=== PATIENT | female | born 1995 | race Hispanic/Latino ===

== ENCOUNTER 2016-12-06 15:11 | Day surgery (SDC) | payer SELFPAY ==
[2016-12-06] VITALS (14 sets, daily range): BP systolic 95–124; BP diastolic 60–77; PULSE 62–79; RESP 11–27; O2SAT 96–100
[~2016-12-06] VITALS: Ht 162.6 cm; Wt 73.6 kg
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
[2016-12-06] MEDS ORDERED: 0.9% Sodium Chloride 1,000 ML IV ONE ×2 (17:12→19:15)
[2016-12-06 17:14] LABS: APPEARANCE,URINE HAZY (CLEAR,HAZY); COLOR,URINE YELLOW (YELLOW); OCCULT BLOOD,URINE SMALL (NEGATIVE); UROBILINOGEN,URINE NORMAL (NORMAL)
[2016-12-06 18:17] LABS: Mean Corpuscular Hemoglobin 28.3 pg (27.0-35.0); Mean Corpuscular Volume 87.7 fL (81-100)
[2016-12-06] MEDS ORDERED: HYDROmorphone 0.5 mg/0.5 mL iSecure Syringe IVPUSH ONE (19:15)
[2016-12-06] MEDS ORDERED: Ondansetron 2 mg/mL 2 mL Inj IVPUSH ONE (19:15)
[2016-12-06] MEDS ORDERED: HYDROmorphone 1 mg/mL Inj IVPUSH ONE ×2 (19:55→21:00)
--- NOTE | 2016-12-06 20:13 | DRSVH ---
PROCEDURE: US PELVIC SONOGRAM + TRANSVAGINAL SONOGRAM INDICATIONS: +preg, abdominal pain. TECHNIQUE: Real-time scanning was performed of the pelvic organs, with image documentation. Additional endovagi nal scanning was necessary due to incomplete visualization of the adnexal and endometrial structures by transabdominal scanning. COMPARISON: None. FINDINGS: Transabdominal scanning: Limited scanning through the kidneys shows no hydronephrosis. There is a l arge amount of echogenic free fluid in the pelvis and upper quadrants bilaterally. Endovaginal scanning: Uterus: Uterus is normal in size at 8.2 x 4.6 x 5.7 cm. The endometrium measures 13.8 mm in combine d thickness. There is no intrauterine gestational sac. Ovaries: There is a 3.2 x 2.5 x 2.2 cm echogenic mass in the right adnexa with central lucency and p eripheral vascularity, suspicious for ectopic . Right ovary is measures 2.0 x 2.4 x 2.2 cm w ith a 1 cm corpus luteum cyst. The left ovary is not identified. IMPRESSION: 1. A 3.2 x 2.5 x 2.2 cm echogenic mass with central lucency and peripheral vascularity in the right a dnexa, suspicious for ectopic . 2. No intrauterine gestational sac. 3. A large amount of echogenic free fluid in pelvis and in both upper quadrants consistent with hemat joanna. This finding is concerning for ruptured ectopic . The result was discussed with Dr. Montanez in ER on 12/06/2016 at 2010 hours. Dictated by: Conor Bowser M.D. on 12/06/2016 at 20:04 Transcribed by: ANNE on 12/06/2016 at 20:13 Approved by: Conor Bowser M.D. on 12/06/2016 at 20:15
[2016-12-06 21:19] LABS: INR 0.96 ratio
[2016-12-06] MEDS ORDERED: Ondansetron 2 mg/mL 2 mL Inj IVPUSH PRN (21:55)
[2016-12-06] MEDS ORDERED: MetoCLOpramide 5 mg/mL 2 mL Inj IVPUSH PRN (21:55)
[2016-12-06] MEDS ORDERED: Alum-Mag Hydrox-Simeth 30 mL Suspension PO PRN (21:55)
[2016-12-06] MEDS ORDERED: oxyCODONE-Acetamin 5-325 mg Tablet PO PRN (21:55)
[2016-12-06] MEDS ORDERED: Acetaminophen IV 1,000 MG in IV Premix 1 EACH IV PRN (21:55)
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
[2016-12-06] MEDS ORDERED: Lactated Ringer's 1,000 ML IV ONE (22:32)
[2016-12-06] MEDS ORDERED: Bupivacaine-MPF 0.5% W/EPI 30 mL Inj INFILTRATE ONE (22:32)
[2016-12-07] VITALS: BP 116/60; PULSE 75; RESP 18; O2SAT 100
[2016-12-07] MEDS: Lactated Ringer's 1,000 ML IV SCH ×2 (00:18→05:51)
[2016-12-07] MEDS: HYDROmorphone 1 mg/mL Inj IVPUSH PRN ×2 (00:22→08:49)
[2016-12-07] MEDS ORDERED: Dexamethasone 4 mg/mL Inj ONE (00:47)
[2016-12-07] MEDS ORDERED: Propofol 10,000 mCg/mL 20 mL Inj ONE (00:47)
[2016-12-07] MEDS ORDERED: fentaNYL-PF 50 mCg/mL 2 mL Inj ONE (00:47)
[2016-12-07] MEDS ORDERED: KETAMINE PO ONE (00:47)
[2016-12-07] MEDS ORDERED: Ondansetron 2 mg/mL 2 mL Inj ONE (00:47)
[2016-12-07 00:49] VITALS: BP 124/92; PULSE 77; RESP 18; O2SAT 100
--- NOTE | 2016-12-07 01:07 | PCM.ANEP1 ---
Post Anesthesia PACU Phase 1 Assessment Vital Signs Vital Signs Date Time Temp Pulse Resp B/P Pulse Ox O2 Delivery O2 Flow Rate FiO2 12/07/16 00:49 36.5 77 18 124/92 100 Room Air 12/07/16 00:00 75 18 116/60 100 Room Air 12/06/16 23:55 37.5 64 18 124/71 100 Room Air 12/06/16 23:50 62 16 122/74 100 Room Air 12/06/16 23:45 63 11 119/69 100 Room Air 12/06/16 23:40 68 27 118/77 100 Room Air 12/06/16 23:35 64 16 109/60 100 Room Air 12/06/16 23:30 36.5 67 12 95/75 96 Room Air 12/06/16 21:33 36.7 71 16 117/66 100 Room Air 12/06/16 21:23 71 16 117/66 100 Room Air 12/06/16 21:06 74 14 114/72 100 Room Air 12/06/16 20:50 75 14 115/64 100 Room Air 12/06/16 20:32 74 15 119/69 100 Room Air 12/06/16 20:16 79 15 124/72 99 Room Air 12/06/16 20:00 73 14 111/65 97 Room Air Anesthetic Administered: GA Level of Alertness: Awake, talking Pain: No Pain Scale Score: 2 Nausea or Vomiting: No CV Function & Hydration Stable: Yes Airway Device: Oxygen Delivery: Room Air Lungs: Clear to Auscultation, Normal Air Movement PACU Phase 2 Assessment Complications: No Follow up Care: No Patient Instructions Provided: N/A William Hollis MD Dec 07, 2016 01:07
--- NOTE | 2016-12-07 02:11 | NUR ---
Admit Note Pt. arrived on floor around 0005. Pt. was alert and oriented x3. However, pt. was very tearful and emotional. Pt. could not rate pain, but described it as "bad". Heating pad, IV Dilaudid, and PO Percocet given. PO Percocet seemed to be the most effective. Pt. became nauseous about an hour after admission, and Reglan IV was given. Significant other in room with pt. Pt.'s IV fluids running in right AC peripheral IV which is intact and patent. Will continue to monitor.
[2016-12-07 05:00] VITALS: BP 105/67; PULSE 94; RESP 14; O2SAT 99
[2016-12-07 05:37] LABS: BASOPHILS % (AUTO) 0 % (0-3); EOSINOPHILS % (AUTO) 0 % (0-5); Mean Corpuscular Hemoglobin 28.4 pg (27.0-35.0); Mean Corpuscular Volume 87.4 fL (81-100); NEUTROPHILS % (AUTO) 92.7 % (40-74); Platelet Count 187 bil/L (150-400)
[2016-12-07 07:55] VITALS: BP 95/62; PULSE 60; RESP 16; O2SAT 99
--- NOTE | 2016-12-07 11:49 | PCM.DIGYN ---
Surgical Discharge Instruction Dates of Hospitalization Date of Hospital Admission Dec 07, 2016 at 00:46 Providers Admitting Physician: Rich Ramirez MD Primary Care Physician: Nopcp Attending Physician: Rich Ramirez MD Diagnosis at Time of Discharge Problems: (1) Ruptured ectopic Status: Acute ICD Code: O00.90 Diet Discharge Diet: No restrictions Activity Discharge Activity-General: No lifting >10 pounds for 4-6 weeks, Other (Pelvic Rest for 4-6 weeks.) Dressing and Incisional Care Dressing Care: Remove outer dressing after 24 hrs Hygiene: May shower, DO NOT soak incision under water Follow Up Plan Follow-up appointment: Weeks (Follow up in Office for 30-minute postoperative checkup in 4-6 weeks.) Call your provider for: Fever, Chills, Shortness of breath, Increasing pain Rich Ramirez MD Dec 07, 2016 11:49
[2016-12-07] MEDS ORDERED: OXYC1TAB24 PO (11:51)
--- NOTE | 2016-12-07 12:27 | NUR ---
Social Work: Screening/Readiness for Discharge D: EMR reviewed. Pt is a 21 y/o female admitted for possible /stomach pain per H&P. Per MD in AM multi-disciplinary rounds, pt will likely discharge today. SW met with pt and pt's SO (angelohyacinth) at bedside to conduct initial screening. Pt was alert and oriented x3. SW explained role and wrote phone number on white board. Pt doesn't have insurance listed and confirmed she will pay privately. SW offered to connect pt with [facility] and pt stated she pending approval for Medicaid and does not need assistance. PCP is María Samuel MD. Pt gave verbal consent to contact her SO, Alton Nazario ([phone]) for discharge planning. SW provided DPOA/advanced directive ppw and encouraged pt to provide a copy to the hospital once complete. Pt lives in [place] and was visiting her SO in [place]. Pt states her SO will provide transport home via POV when pt is medically stable. SW does not anticipate any discharge needs at this time but will continue to follow if needs arise. A: Pt who is independent at baseline. P: Pt states her SO will provide transport home via POV when pt is medically stable. SW does not anticipate any discharge needs at this time but will continue to follow if needs arise. ZAHRA Stubbs
[2016-12-07 13:35] VITALS: BP 111/72; PULSE 63; RESP 18; O2SAT 100
--- NOTE | 2016-12-07 15:18 | NUR ---
Social Work: Discharge D: EMR reviewed. Pt is on day 1 of hospitalization. Pt states her SO will provide transport home via POV today. SW does not anticipate any discharge needs at this time but will continue to follow if needs arise. A: Pt who is independent at baseline. P: Pt states her SO will provide transport home via POV today. SW does not anticipate any discharge needs at this time but will continue to follow if needs arise. ZAHRA Stubbs
--- NOTE | 2016-12-07 15:48 | NUR ---
Discharge Patient A&Ox3. Independent in room. VSS. Pain well controlled with PO pain meds. Incisions well approximated with scant amount sero-sang drainage. Dressing C/D/I. Discharge instructions printed and reviewed verbally with patient and SO. Patient ambulated off unit with all personal belongings and discharged home via personal vehicle.
--- NOTE | 2016-12-08 03:11 | OP ---
[address] [address] OPERATIVE REPORT PATIENT: KATELIN VASQUEZ : 1995 MR#: [id number] ADMIT: 12/07/2016 JOB ID: [id number] DATE OF SURGERY: 12/07/2016 PREOPERATIVE DIAGNOSIS(ES): Suspected right tubal ruptured (or bleeding) tubal . POSTOPERATIVE DIAGNOSIS(ES): Right tubal unruptured, yet bleeding tubal . SURGEON: Rich Ramirez MD PHILOSOPHY SPECIALIST: None. PROCEDURES PERFORMED: 1. Mini laparotomy. 2. Partial right salpingectomy with excision of tubal . INDICATION FOR SURGERY: This patient presented to [facility] emergency department with abdominopelvic pain (particularly right-sided), positive test, no intrauterine on ultrasound, right adnexal mass suggestive of ectopic , and with fluid that appeared to be blood scattered throughout the abdomen and pelvis. The patient understood the need for surgery and we discussed alternative approaches including mini laparotomy versus laparoscopy. After consideration of past surgical history, reproductive interests, and current clinical situation, we agreed upon mini laparotomy for diagnostic and therapeutic purposes. The patient understood the risks of surgery, and signed informed consent. ANESTHESIA: General. FINDINGS AT SURGERY: Upon entrance into the abdomen, there was noted approximately 200 cc of blood and clots, mostly in the cul-de-sac area, although scattered throughout the abdomen and pelvis. The uterus, right ovary, left ovary and left fallopian tube all appeared completely normal. There was no evidence for endometriosis, adhesions, or neoplasm. The right fallopian tube, however, was significantly abnormal, i.e., with unruptured, yet severely stretched mid aspect, with blood coming from the fimbriated end. The right fallopian tube appeared significantly damaged and it seemed less prudent to try to save the right fallopian tube in this setting with significantly increased risk of tubal recurrence, and especially with left fallopian tube appearing to be completely normal. Therefore, at procedure's close, segmental resection of the midportion of the right fallopian tube was then accomplished with excision of the ectopic , thus, and with preservation of proximal and distal tubal elements if ever needed for some type of reanastomosis procedure, although not deemed likely with normal-appearing left fallopian tube, although the patient will be informed of increased risk for ectopic on that side as well since she has had one on the opposite side. At procedure's close, there was no bleeding occurring at any site. Instrument, needle, and sponge counts were all found to be correct. It certainly is anticipated that patient will do well postoperatively. She will be admitted overnight due to the very late hour and the significant pain that she has had as well as internal bleeding, and we will thus have solid opportunity to track vitals, blood count, etc. The patient and I will discuss the importance of testing right away in the future after conception, track hormone levels, her beta hCG levels, and then time-out ultrasound when appropriate to identify intrauterine if feasible. It would be our hope that if any type of ectopic recurred that it could be treated with methotrexate as opposed to needing surgery. On the other hand, it is our greater hope that simply intrauterine will occur the next time, which is more likely. PROCEDURE IN DETAIL: The patient was placed in supine position on the operating table and general anesthesia was induced. She was then very carefully repositioned into the low dorsal lithotomy position, prepped and draped in the usual sterile manner, and appropriate time-out was taken. The RICHARD cannula was secured in place within the cervix/uterus, and attention was then directed to the abdomen. A mini-laparotomy incision was made via a short Pfannenstiel, subcutaneous tissue and fascial layer. Rectus muscles were then from the overlying fascia with blunt and sharp dissection. The rectus muscles then in the midline . Extensive suctioning was accomplished with return of about 200 cc of internal blood and . Inspection of the fallopian tubes and ovaries was then accomplished with findings as noted above. The right fallopian tube was identified and unruptured, yet extensively involved mid tubal that was the source of the bleeding through the fimbriated end of the tube. It was not felt to be a prudent idea to try to save the tube due to its extensive involvement, but rather wiser to remove the mid section of the fallopian tube. To this end, a window in the mesosalpinx was made with cautery and fallopian tube and with clamps on either side of the , on either side of the tubal which was then excised along with its associated fat . Suture of Vicryl was utilized for all pedicles, and hemostasis was noted to be complete in all these areas at each site. Proximal and distal tubal fragments remained, as did the right ovary, left ovary, left fallopian tube, and uterus. Extensive irrigation was then accomplished and extensive suctioning then undertaken. Interceed was then wrapped over the right adnexal surgical site, and internal procedures were thus complete. Instrument, needle, and sponge counts were all found to be correct. Rectus muscles were allowed to fall together in midline. The subfascial plane was inspected and cautery applied where needed. The fascial layer was then closed in a running manner with 2-0 Vicryl suture and the subcutaneous tissues were extensively irrigated and cautery applied where needed. The skin incision was then closed in subcuticular fashion using 4-0 Vicryl suture, with a tiny knot left at the left corner of the incision. Pressure dressing was applied. RICHARD cannula was then removed from the cervix/uterus. Procedures were all complete. The patient was turned to the supine position, awakened and taken to the recovery room. ESTIMATED BLOOD LOSS: Less than 5 cc from surgery (yet note 200 cc of blood and clots in the abdomen and pelvis related to bleeding from the fimbriated end of the right fallopian tube that contained the ectopic in its mid portion). COMPLICATIONS: None. PROGNOSIS: Good for surgical recovery.
--- NOTE | 2016-12-09 16:21 | PATH ---
SURGICAL PATHOLOGY Attending Physician:Rich Ramirez M.D CASE STATUS: Signed Out PATIENT NAME: KATELIN VASQUEZ PID: [id number] : 1995 DATE COLLECTED:12/06/2016 00:00 SPECIMEN: Fallopian Tube, Ectopic CLINICAL HISTORY: ECTOPIC 1. RIGHT ECTOPIC AND FALLOPIAN TUBE SEGMENT FINAL DIAGNOSIS: 1.FALLOPIAN TUBE SEGMENT, RIGHT, SALPINGECTOMY: HISTOLOGIC FEATURES OF ECTOPIC GESTATION WITH ASSOCIATED INTRA-LUMINAL HEMORRHAGE. ICD10 O00.1 GROSS DESCRIPTION: The specimen is received in formalin, labeled with the patient's name, sublabeled as right ectopic and fallopian tube segment and consists of a fimbriated fallopian tube (length-4.3 cm, diameter-1.9 cm). The serosa is naqvi-purple smooth and shiny. The lumen is dilated and contains solid spongy dark maroon tissue. No tissue is identified. Also submitted are multiple fallopian tube fragments (2.1 x 1.5 x 0.5 cm in aggregate). Section code: (A-G) fallopian tube, serially sectioned and submitted proximal to distal; (H) fimbria, bivalved; (I) separate fragments. Specimen entirely submitted. 12/08/16 JM MICRO DESCRIPTION: See diagnosis. ICD-9 CODES: CPT CODES: 1: 00528 Electronically Signed Out Karishma Bain MD [facility] Pathology [facility], [place] [address] Technical component performed at [facility], [address] [place] [address] Ave[address], [place], [address]
--- NOTE | 2016-12-10 06:34 | DIS ---
[address] [address] DISCHARGE SUMMARY PATIENT: KATELIN VASQUEZ : 1995 MR#: [id number] ADMIT: 12/06/2016 JOB ID: [id number] DIS: 12/07/2016 DATE OF DISCHARGE: 12/07/2016 DISCHARGE DIAGNOSIS: Right tubal with bleeding. PROCEDURES PERFORMED DURING HOSPITALIZATION: 1. Mini laparotomy. 2. Partial right tubal excision with removal of ectopic . HOSPITAL COURSE: Patient admitted to [facility] on December 06, 2016 with abdominal pain and internal bleeding related to right tubal . She underwent surgery and during the postoperative timeframe she did well. She was able to eat, void, ambulate. She had stable vitals signs and she was afebrile. Postoperative hemoglobin was 10.1 which was up from preoperative value, and she was thus doing well in general. She requested discharge to home on the first postoperative day i.e. on December 07, 2016. DISCHARGE PROGRAM: Patient will call p.r.n., yet otherwise she should follow up in the office in a few weeks for postoperative checkup. She should observe pelvic rest for 4-6 weeks and not do any heavy lifting during this time. DISCHARGE MEDICATION: Percocet, prescription written.
== END 2016-12-07 15:38 | disposition home or self-care (01) ==
LOC: SED 15:11 → OSC 21:36 → SAS 21:46 → OSC 12-07 00:46 → UNDOADMOB 12-07 00:46 → UNDODISOB 12-07 15:38 → SAS 12-07 15:38
PROVIDERS: ATTEND Obstetrics & Gynecology
DX: O00.90 Unspecified ectopic pregnancy without intrauterine pregnancy (principal); G89.18 Other acute postprocedural pain; Z90.49 Acquired absence of other specified parts of digestive tract; Z87.442 Personal history of urinary calculi; Z3A.01 Less than 8 weeks gestation of pregnancy
CPT/HCPCS: 36415; 59151; 76830; 76856; 80053; 81000; 81025; 83605; 84702; 85014; 85018; 85025; 85027; 85384; 85610; 85730; 86922; 96361; 96374; 96375; 96376; 99285; J1100; J1170; J1885; J2250; J2405; J2765; J3010; J7030; J7120

== ENCOUNTER 2016-12-09 14:46 | Emergency (ER) | payer SELFPAY ==
[~2016-12-09] VITALS: Ht 162.6 cm; Wt 140.0 kg
[~2016-12-09 14:46] MED LIST: OXYC1TAB24 PO
[2016-12-09 15:04] VITALS: BP 108/75; PULSE 73; RESP 18; O2SAT 99
--- NOTE | 2016-12-09 15:30 | ED.REPORT ---
HPI-General Illness Date of Service Dec 09, 2016 ED Provider: Dr. Driver Pt is a 21 y/o female presenting to the ED c/o bleeding from an abdominal incision site onset today. The patient had a bleeding right tubal removal on 12/06/16 and did not contact the [employer] provider Dr. Ramirez today. She c/ o associated sharp abdominal pain only from the incision which has been present since the surgery, lightheadedness secondary to pain, and RLE pain. She describes her pain as being mostly superficial. Pt denies diarrhea, constipation , fever, chills, vaginal bleeding or discharge, bloody stools. She denies any personal or family history of bleeding disorders. Nursing Notes Stated Complaint: OPEN POST OP INCISION Chief Complaint: Female Abdominal Pain Nursing Notes Reviewed: Yes Allergies: Coded Allergies: No Known Allergies (Unverified , 12/09/16) Scheduled PRN oxyCODONE-Acetaminophen 5-325 mg (oxyCODONE-Acetaminophen 5-325 mg) 1 Each Tablet 1-2 TAB PO Q4H PRN PRN For Moderate Pain General Time Seen by MD: 15:30 Chief Complaint Other (incision site) Hx Obtained From: Patient Arrived By: Walk-in Sudden in Onset?: No Onset Occurred: 1 - 4 hours ago Symptom Duration: Since onset Location: : Abdomen Quality: Painful Severity: Current: Moderate Severity: Maximum: Moderate Recent Healthcare: Recent doctor visit, Previous surgery Past Medical History Past Medical History Notes: Past Medical History Hx kidney stones Right tubal Past Surgical History Cholecystectomy Bleeding right tubal repair Smoking History Unknown if Ever Smoker Ambulatory Status Independent Review of Systems Full Review of Systems Constitutional: Denies: Chills, Fever Respiratory: Denies: Non-productive cough, Shortness of breath Cardiovascular: Denies: Chest pain, Dyspnea on exertion GI: Reports: Abdominal pain, Denies: Bloody/tarry stool, Constipation, Diarrhea, Nausea, Vomiting Female: Denies: Vaginal bleeding - abnl, Vaginal discharge Hematologic: Reports Bleeding Skin: Denies Rash Neurologic: Reports: Lightheaded, Denies: Dizziness Complete sys rev & neg: except as marked. Physical Exam Constitutional: Well-developed, well-nourished. Not diaphoretic. Head: Normocephalic and atraumatic. Mouth/Throat: Oropharynx is clear and moist. No oropharyngeal exudate. Eyes: EOM are normal. Pupils are equal, round, and reactive to light. Neck: Supple, no tracheal deviation. Cardiovascular: Normal rate, regular rhythm. Equal and intact distal pulses throughout. Pulmonary/Chest: Effort normal and breath sounds normal. No respiratory distress. Abdominal: Soft. No distension. There is mild diffuse tenderness lower abdominal tenderness with no focal tenderness, rebound, or guarding. Bowel sounds present. Horizontal midline suprapubic incision appears to be healing well. No drainage. Clean dry and intact. Musculoskeletal: Range of motion grossly intact, moving all extremities. No edema or tenderness appreciated. Neurological: AOx3. Grossly nonfocal exam. Strength and sensation intact and equal to bilateral upper and lower extremities. Skin: Warm and dry, no rashes or pallor appreciated. Psychiatric: Appropriate mood and affect. Behavior appears normal. Vital Signs Vital Signs Date Time Temp Pulse Resp B/P Pulse Ox O2 Delivery O2 Flow Rate FiO2 12/09/16 20:54 36.8 61 18 108/68 99 Room Air 12/09/16 18:17 36.8 61 108/68 99 Room Air 12/09/16 15:04 36.6 73 18 108/75 99 Room Air Initial VS: Reviewed, Vital signs normal Interpretation & Diagnostics Lab Results Interpretation Result Diagram: 12/09/16 1650 12/09/16 1650 Test 12/09/16 16:50 12/09/16 18:16 White Blood Count 6.3th/mm3 (3.8-10.1) Red Blood Count 3.62mil/mm3 (3.90-5.20) Hemoglobin 10.3g/dL (12.0-15.6) Hematocrit 31.9% (35.0-46.0) Mean Corpuscular Volume 88.1fL (81-100) Mean Corpuscular Hemoglobin 28.5pg (27.0-35.0) Mean Corpuscular Hemoglobin Concent 32.3% (32.0-37.0) Red Cell Distribution Width 13.5% (12.3-15.4) Platelet Count 183bil/L (150-400) Neutrophils (%) (Auto) 61.1% (40-74) Lymphocytes (%) (Auto) 29.8% (14-46) Monocytes (%) (Auto) 7.6% (4-12) Eosinophils (%) (Auto) 1.1% (0-5) Basophils (%) (Auto) 0.2% (0-3) Prothrombin Time 9.9sec (8.1-12.5) Prothromb Time International Ratio 0.93ratio Sodium Level 140mEq/L (134-144) Potassium Level 3.8mEq/L (3.5-5.2) Chloride Level 104mEq/L (97-108) Carbon Dioxide Level 25mmol/L (18-29) Blood Urea Nitrogen 10mg/dL (6-20) Creatinine 0.51mg/dL (0.57-1.00) Estimat Glomerular Filtration Rate 214mL/min (>59) Glucose Level 85mg/dL (60-99) Lactic Acid Level 1.1mmol/L (0.4-2.0) Calcium Level 9.4mg/dL (8.5-10.1) Magnesium Level 1.7mg/dL (1.6-2.6) Total Bilirubin 0.2mg/dL (0.0-1.2) Aspartate Amino Transf (AST/SGOT) 12U/L (0-50) Alanine Aminotransferase (ALT/SGPT) 9U/L (0-32) Alkaline Phosphatase 86U/L (25-150) Total Protein 6.4g/dL (6.4-8.4) Albumin 3.5g/dL (3.4-5.0) Lipase 42U/L (13-60) Urine Color Yellow (YELLOW) Urine Appearance Clear (CLEAR,HAZY) Urine pH 7.5 (5.0-8.0) Urine Specific [place] 1.015 (1.003-1.035) Urine Protein Negativemg/dL (NEG,TRACE) Urine Glucose (UA) Negativemg/dL (NEGATIVE) Urine Ketones Negativemg/dL (NEGATIVE) Urine Occult Blood Moderate (NEGATIVE) Urine Nitrite Negative (NEGATIVE) Urine Bilirubin Negative (NEGATIVE) Urine Urobilinogen Normalmg/dL (NORMAL) Urine Leukocyte Esterase Negative (NEGATIVE) Urine RBC 0-2/hpf (0-2) Urine WBC 0-5/hpf (0-5) Urine Epithelial Cells Many/hpf (NONE-MOD) Urine Crystals None seen (NONE SEEN) Urine Bacteria Moderate/hpf (NONE-FEW) Urine Hyaline Casts None/lpf (NONE) Urine Granular Casts None seen (NONE SEEN) Urine Waxy Casts None seen (NONE SEEN) Urine Red Blood Cell Casts None seen (NONE SEEN) Urine White Blood Cell Casts None seen (NONE SEEN) Urine Mucus None seen (None Seen) Urine Trichomonas None seen (NONE SEEN) Urine Yeast None (NONE SEEN) Urinalysis Comment None Urine Culture Reflexed Indicated US Focused Lower Ext Venous Exam Performed by: Allied health pract Exam Interpreted by: Allied health pract Interpretation: No evid deep vein thromb Re-Eval/Medical Decision Med Decision/Clinical Course 21-year-old female presenting to the emergency department for evaluation of pain from her incision site after surgery for a tubal several days ago. Non-toxic appearing. Laboratory studies here grossly within normal limits. Hemoglobin is stable from previous. Discussed the case with Dr. Ramirez as per below. Upon reassessment, patient reports improvement in symptoms. Given this, as well as after discussion with Dr. Ramirez, reasonable to discharge the patient home with careful return precautions, follow-up with Dr. Ramirez tomorrow. Patient agreeable to the plan as stated, no further questions. Time of Eval: 20:28 Re-Evaluation/Progress Note: Pt rechecked. Informed pt of plan for treatment. Pt understands and agrees with plan for treatment. F/U instructions and RTER warnings given. All questions addressed. Consultation : Referral / Consult Name: Rich Ramirez MD Call Returned at: 19:33 Geothermal Production Manager: Agrees with eval, Agrees with plan Note: Discussed case with [employer]. He is not concerned with her given normal labs and no systemic symptoms. Counseled Regarding: Diagnosis, Lab results, Need for follow-up, When/why to return to ED Discharge & Departure Primary Impression: Post-operative pain Additional Impressions: Right leg pain Lower abdominal pain Disposition: Home Discharge Condition All VS Reviewed: Yes Condition: Stable Additional Instructions: Your evaluation today was reassuring. Labs were normal. The ultrasound of your leg showed no abnormality. I spoke with Dr. Ramirez today who would like you to call his office tomorrow to set up an appointment to be seen. Return to the emergency department for worsening abdominal pain, vaginal bleeding, vomiting, high fever, or for other symptoms concerning to you. Referrals: Rich Ramirez MD Scribe Attestation Portions of this note were transcribed by Renato Vega. I, Dr. Driver, personally performed the history, physical exam and medical decision-making; I reviewed and confirmed the accuracy of the information in the transcribed note. Signed by Marquis Ozuna, 12/09/16 - 1700 copies to: Rich Ramirez MD,Anthony Nino MD Dec 09, 2016 15:30 RENATO VEGA Dec 09, 2016 16:13
[2016-12-09 17:02] LABS: BASOPHILS % (AUTO) 0.2 % (0-3); EOSINOPHILS % (AUTO) 1.1 % (0-5); MONOCYTES % (AUTO) 7.6 % (4-12); Mean Corpuscular Hemoglobin 28.5 pg (27.0-35.0); Mean Corpuscular Volume 88.1 fL (81-100); NEUTROPHILS % (AUTO) 61.1 % (40-74); Platelet Count 183 bil/L (150-400)
[2016-12-09 17:20] LABS: INR 0.93 ratio
[2016-12-09 17:27] LABS: Magnesium 1.7 mg/dL (1.6-2.6)
[2016-12-09 18:17] VITALS: BP 108/68; PULSE 61; O2SAT 99
[2016-12-09 18:51] LABS: COLOR,URINE YELLOW (YELLOW)
[2016-12-09 18:52] LABS: APPEARANCE,URINE CLEAR (CLEAR,HAZY); OCCULT BLOOD,URINE MODERATE (NEGATIVE); PH,URINE 7.5 (5.0-8.0); UROBILINOGEN,URINE NORMAL (NORMAL)
[2016-12-09 20:54] VITALS: BP 108/68; PULSE 61; RESP 18; O2SAT 99
--- NOTE | 2016-12-10 08:39 | DRSVH ---
PROCEDURE: US VEINOUS LEG DUPLEX UNILATERAL, RIGHT INDICATIONS: eval for DVT TECHNIQUE: Real-time imaging, as well as color and pulse Doppler interrogation, were performed of the lower extr emity deep veins from the inguinal ligament to the popliteal fossa. COMPARISON: None. FINDINGS: The deep veins are normally compressible, and free of intraluminal thrombus. Color and pu lse Doppler demonstrate normal phasic intraluminal flow. There is normal augmentation response to di stal compression maneuver. IMPRESSION: No deep venous thrombosis identified within the right lower extremity. Dictated by: Mohamud PARHAM Interpreted: Rocio Colon MD on 12/10/2016 at 8:37 Transcribed by: CONRADO on 12/10/2016 at 8:38 Approved by: Rocio Colon MD, PhD on 12/10/2016 at 9:46
== END 2016-12-09 20:55 | disposition home or self-care (01) ==
LOC: SED 14:46
DX: G89.18 Other acute postprocedural pain (principal); M79.604 Pain in right leg; R10.30 Lower abdominal pain, unspecified; Z87.442 Personal history of urinary calculi; Z90.49 Acquired absence of other specified parts of digestive tract; Z87.59 Personal history of other complications of pregnancy, childbirth and the puerperium